=== PATIENT | male | born 1950 | race Caucasian/White ===

== ENCOUNTER → 2020-07-26 13:04 | Outpatient (CLI) | payer MEDICAID, SELFPAY ==
[2020-07-26 12:36] VITALS: BMI 28.0
[2020-07-26 13:35] LABS: Anion Gap 7 (5-15); BUN 55 mg/dL (7-18); BUN/Creat Ratio 19.1 RATIO (10-20); Calcium,Total 8.8 mg/dL (8.5-10.1); Chloride 108 mmol/L (98-107); Creatinine, Serum 2.88 mg/dL (0.70-1.30); EST Glomerular Filtration Rate 23 mL/min (>60); Est Glom Filt Rate - Afr Amer 28 mL/min (>60); Glucose 97 mg/dL (74-106); Potassium 4.9 mmol/L (3.5-5.1); Sodium Level 139 mmol/L (136-145)
[2020-07-26 21:20] LABS: Xtra Tube EP Lab EXTRA TUBE
== END ==
PROVIDERS: PCP Internal Medicine; Referring Provider Surgery; Visit Provider Surgery
DX: N28.9 Disorder of kidney and ureter, unspecified (principal)
CPT/HCPCS: 36415; 80048

== ENCOUNTER → 2020-08-12 12:32 | Outpatient (CLI) | payer MEDICAID, SELFPAY ==
[2020-07-26 12:36] VITALS: BMI 28.0
--- NOTE | 2020-08-12 12:35 | CDU_ITS ---
Reason For Study: STENOSIS Rt. Velocities/BP Lt. Velocities/BP Prox CCA 99/12 cm/sec. Prox CCA 107/14 cm/sec. Mid CCA 71/11 cm/sec. Mid CCA 83/11 cm/sec. Dist CCA 112/19 cm/sec. Dist CCA 65/11 cm/sec. Prox ICA 85/21 cm/sec. Prox ICA 434/157 cm/sec. Mid ICA 99/24 cm/sec. Mid ICA 212/58 cm/sec. Dist ICA 68/21 cm/sec. Dist ICA 57/18 cm/sec. Rt. ICA/CCA = 1.0. Lt. ICA/CCA = 5.2. Prox ECA 99/0 cm/sec. Prox ECA 113/10 cm/sec. Rt. Vert. 42/12 cm/sec. Lt. Vert. 35/0 cm/sec. Right Extracranial There is intimal thickening but no significant atherosclerotic plaque noted in the right common carotid artery. There is heterogeneous, irregular atherosclerotic plaque noted in the right internal carotid artery. There is heterogeneous, irregular atherosclerotic plaque noted in the right external carotid artery. Antegrade flow is noted in the right vertebral artery. There is heterogeneous, irregular atherosclerotic plaque noted in the right bulb. Left Extracranial There is heterogeneous, irregular atherosclerotic plaque noted in the left common carotid artery. There is heterogeneous, irregular atherosclerotic plaque noted in the left internal carotid artery. There is heterogeneous, irregular atherosclerotic plaque noted in the left external carotid artery. Antegrade flow is noted in the left vertebral artery. There is heterogeneous, irregular atherosclerotic plaque noted in the left bulb. Procedure Carotid Duplex 44049. Technically difficult- done with pt sitting upright in his wheelchair. Exam performed in department. VL/Carotid Duplex Ultrasound Interpretation Summary Irregular calcific plaque in the proximal right internal carotid artery with le ss than 50% stenosis Less than 50% stenosis right external carotid artery Extensive irregular calcific plaque at the proximal left internal carotid arter y with greater than 70% stenosis. Elevated peak systolic velocity and end diastolic velocity and IC A to CCA ratios all elevated significantly abnormal consistent with critical stenosis Less than 50% stenosis left external carotid artery Patent and antegrade vertebral arteries bilaterally Ordering Physician: Yasir Luu Referring Physician: PETAR GUALLPA Performed By: Alicia Cruz, ZEUS, RVT
== END ==
PROVIDERS: PCP Internal Medicine; Referring Provider Surgery; Visit Provider Surgery
DX: I65.22 Occlusion and stenosis of left carotid artery (principal)
CPT/HCPCS: 93880

== ENCOUNTER → 2020-10-03 06:52 | Outpatient (CLI) | payer MEDICAID, SELFPAY ==
[2020-09-14 07:13] VITALS: BMI 28.7
--- NOTE | 2020-10-03 15:47 | STRESSREP ---
Stress Test Report Pharmacologic myocardial perfusion stress test. 70-year-old man with a history of coronary artery disease. Medications apixaban atorvastatin furosemide metoprolol. Stress protocol: Resting EKG demonstrates normal sinus rhythm with a rate of 55 bpm normal intervals are noted resting blood pressure is 138/84 mmHg. 0.4 mg of regadenoson was infused per usual protocol followed by rapid intravenous saline flush injection continuous EKG monitoring was performed. At rest there were no ST or T wave changes noted to suggest abnormal flow reserve and at peak infusion nonspecific ST changes were noted with did not meet the criteria for ischemia. No clinical angina was noted the final blood pressure was 142/72 mmHg. Myocardial perfusion protocol. 11.0 mCi of technetium 99m sestamibi was injected at rest. 0.4 mg of regadenoson was infused per usual protocol. At peak infusion 35.4 mCi of technetium 99m sestamibi was injected stress images were obtained stress and rest images were reconstructed and compared in the short axis vertical long and horizontal long axis. Gated images were also obtained per Perfusion SPECT analysis: Review of the stress images demonstrated normal uptake of tracer noted in all areas of the myocardium. The resting images similarly demonstrated normal uptake of tracer noted in all areas of the myocardium. No areas of reversibility are noted to suggest ischemia and no previous infarct is noted. Gated SPECT analysis: The gated ejection fraction is 67%. Conclusion: Normal pharmacologic myocardial perfusion stress test. Preserved ejection fraction.
== END ==
PROVIDERS: PCP Internal Medicine; Visit Provider Internal Medicine Cardiovascular Disease
DX: Z95.5 Presence of coronary angioplasty implant and graft (principal)
CPT/HCPCS: 78452; 93017; A9500; A4216; J2785

== ENCOUNTER → 2024-05-27 | Outpatient (CLI) | payer MEDICAID, SELFPAY ==
--- NOTE | 2024-05-27 07:48 | VDUE_ITS ---
Reason For Study Reason For Study: PRE-Op Planning Right Lower Arm Left Arm Proximal Radial artery diameter 0.29 x 0.31 mm. Left Brachial artery diameter 0.50 x 0.51 mm. Proximal Radial artery waveform is triphasic . Left Brachial artery waveform is triphasic . Right Arm Cephalic Vein at distal forearm measures 0.22 x 0.20 Right Brachial artery diameter 0.57 x 0.54 mm. cm. Right Brachial artery waveform is triphasic . Cephalic Vein at mid forearm measures 0.17 x 0.18 cm. Cephalic Vein at distal forearm measures 0.22 x 0.22 Cephalic Vein proximal forearm measures 0.16 x 0.17 cm. cm. Cephalic Vein at mid forearm measures 0.24 x 0.25 cm. Cephalic Vein distal upper arm measures 0.21 x .024 Cephalic Vein proximal forearm measures 0.22 x 0.18 cm. cm. Cephalic Vein at mid upper arm measures 0.08 x 0.12 Cephalic Vein distal upper arm measures 0.34 x 0.33 cm. cm. Cephalic Vein at proximal upper arm measures 0.11 x Cephalic Vein at mid upper arm measures 0.27 x 0.27 0.15 cm. cm. Proximal Basilic vein measures 0.38 x 0.38 cm. Cephalic Vein at proximal upper arm measures 0.35 x Mid Basilic vein measures 0.41 x 0.41 cm. 0.27 cm. Distal Basilic vein measures 0.39 x 0.40 cm. Proximal Basilic vein measures 0.56 x 0.52 cm. Left Lower Arm Mid Basilic vein measures 0.29 x 0.33 cm. Proximal Radial artery diameter 0.23 x 0.20 mm. Distal Basilic vein measures 0.34 x 0.33 cm. Proximal Radial artery waveform is triphasic . VL/Dialysis Vein Map PRE-OP BILAT Interpretation Summary Bilateral upper extremity arteries patent with normal waveforms and measurement s above. Bilateral upper extremity arteries patent with measurements above. Ordering Physician: Suly Mathew Referring Physician: Irma Doran Performed By: Jose Savage RVT ???
== END | disposition home or self-care (01) ==
LOC: CVS 07:43
PROVIDERS: PCP Internal Medicine; Referring Provider Physician Assistant; Visit Provider Physician Assistant
DX: N18.6 End stage renal disease (principal)
CPT/HCPCS: 93985

== ENCOUNTER 2025-01-05 10:10 | Day surgery (SDC) | payer MEDICAID, SELFPAY ==
--- NOTE | 2024-09-16 14:12 | PAT.ANESEVAL ---
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 When Was Last Pacemaker Check QUESTION #4 FULL TEXT: You/Your Family Experience fever (hyperthermia) with Anesthesia Last Oral Intake Last Oral intake: Last Oral Intake NPO since Meds taken in AM with sips of water? 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 Female No 09/16/24 12:52 HX of Motion Sickness No 09/16/24 12:52 HX of N/V After Surgery No 09/16/24 12:52 Non-Smoker Yes 09/16/24 12:52 Duration of Surgery greater Yes 09/16/24 12:52 than 60 minutes Number of Risk Factors 2 09/16/24 12:52 PONV Score Moderate Risk 09/16/24 12:52 Height & Weight Height & Weight: Anesthesia: Height & Weight Height 5 ft 11 in 09/14/20 07:13 Respiratory Assessment Respiratory Assessment - veterinary science teacher: Respiratory Tract Infection Hx - veterinary science teacher Hx Respiratory Tract Infection Yes 09/16/24 12:52 STOP Sleep Apnea STOP Sleep Apnea - veterinary science teacher: STOP Sleep Apnea - veterinary science teacher Hx Hypertension Yes 09/16/24 12:52 Hx Sleep Apnea Yes 09/16/24 12:52 CPAP No 09/16/24 12:52 BIPAP No 09/16/24 12:52 Do you snore loudly (louder than talking or can be heard Do you often feel tired/ fatigued/ sleepy during daytime? Has anyone observed you stop breathing during sleep? STOP Results Positive 09/16/24 12:52 QUESTION #5 FULL TEXT : Do you snore loudly (louder than talking or can be heard through closed doors)? 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 Specify any problems Hx of Preganancy in last 3 N/A 09/16/24 12:52 Months Nurse Filling Out Transfusion VCHRISTIN 09/16/24 12:52 & Questions: Date: 09/16/24 09/16/24 12:52 Time: 12:54 09/16/24 12:52 Patient unable to answer at this time (ie. 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: /Reproductive Hx- veterinary science teacher Hx Now Gestational Age (in weeks): EDC: Hx Hx Para Hx Section SAB PFSH Medical History (Updated 09/16/24 @ 13:37 by Danyell Dewey) History of echocardiogram History of stress test Parkinson's disease Depression Anxiety Uses wheelchair Prostate disease History of renal disease Anemia High cholesterol DVT (deep venous thrombosis) Loss of consciousness History of diverticulitis Gastric reflux Non-smoker Sleep apnea Shortness of breath on exertion History of edema Hypertension Cardiology follow-up encounter History of CHF (congestive heart failure) Chronic heart failure with preserved ejection fraction (HFpEF) Sigmoid diverticulosis OAB (overactive bladder) Lung nodules Dementia COVID-19 virus detected (12/2019) Renal cell carcinoma Obstructive sleep apnea DDD (degenerative disc disease) Chronic kidney disease, stage 4 (severe) Recurrent deep vein thrombosis (DVT) Atherosclerotic heart disease of [place] coronary artery without angina pectoris Essential hypertension Hyperlipidemia Compromised kidney function OCD (obsessive compulsive disorder) Dysphagia Bipolar 1 disorder Schizophrenia Anemia Parkinsons Home Medications ?Medication ?Instructions ?Recorded ?Last Taken ?Type aspirin 81 mg tablet,delayed 81 mg PO DAILY 07/26/20 Unknown History release cimetidine 200 mg tablet 200 mg PO BID 07/26/20 Unknown History docusate sodium 100 mg capsule 100 mg PO DAILY PRN STOOL SOFTENER 07/26/20 Unknown History (Colace) isosorbide mononitrate 60 mg 60 mg PO DAILY 07/26/20 Unknown History tablet,extended release 24 hr lamotrigine 25 mg tablet (Lamictal) 75 mg PO BID 07/26/20 Unknown History loratadine 10 mg capsule 10 mg PO DAILY 07/26/20 Unknown History metoprolol succinate 25 mg 50 mg PO DAILY 07/26/20 Unknown History tablet,extended release 24 hr cholecalciferol (vitamin D3) 25 25 mcg PO QDAY 04/30/24 Unknown History mcg (1,000 unit) capsule cholecalciferol (vitamin D3) 50 50 mcg PO QDAY 04/30/24 Unknown History mcg (2,000 unit) capsule pantoprazole 40 mg tablet,delayed 40 mg PO QDAY 04/30/24 Unknown History release aripiprazole 15 mg tablet (Abilify) 20 mg PO DAILY 08/13/24 Unknown History cimetidine 200 mg tablet (Acid 200 mg PO TID 09/16/24 Unknown History 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)) hyoscyamine sulfate 0.125 mg 0.125 mg PO Q4H PRN secretions 09/16/24 Unknown History tablet (Levsin) lorazepam 0.5 mg tablet 0.5 mg PO Q2H PRN anxiety 09/16/24 Unknown History Allergy/AdvReac Type Severity Reaction Status Date / Time NSAIDS (Non-Steroidal Allergy Mild PT UNSURE Verified 08/13/24 12:55 Anti-Inflamma OF REACTION Family History Other Diabetes Surgical History (Updated 09/16/24 @ 12:37 by Danyell Dewey) History of cardiac catheterization History of colonoscopy (11/19/19) History of left nephrectomy History of coronary artery stent placement (05/02/18) Social History Smoking Status: Never smoker alcohol intake: never Audit: Pertinent Findings Pertinent Findings EKG Perinent findings: 12 Lead EKG performed by [facility] [place] 09/14/20 0911 MR#: [id number] Acct: [id number] Name: MEGAN RAMOS Rep #: [id number] : 1950 70 From: Freddie Davidson MD Attending Dr: Dr. Freddie Davidson MD Status: DEP [facility] Ordering Dr: Freddie Davidson MD Date: 09/14/20 Location: [facility] [place] Sex: Tabitha Shell Admitted: BMS/12 Lead EKG performed by BMS ECG Report Interpretation Sinus Bradycardia -First degree A-V block Ramona = 242-Poor R-wave progression -nonspecific -consider old anterior infarct. BORDERLINEElectronically signed on 10/04/2020 at 10:02 by Freddie Davidson [employer] Version DragonWave Stress test pertinent findings: [facility] [address] [place] [address] MR#: [id number] Acct: [id number] Name: MEGAN RAMOS Rep #: [id number] : 1950 From: Freddie Davidson MD Primary Care: Dr. Irma Doran MD Status: REG CLI Referring Dr: Sex: Tabitha Shell Stress Test Report Pharmacologic myocardial perfusion stress test. 70-year-old man with a history of coronary artery disease. Medications apixaban atorvastatin furosemide metoprolol. Stress protocol: Resting EKG demonstrates normal sinus rhythm with a rate of 55 bpm normal intervals are noted resting blood pressure is 138/84 mmHg. 0.4 mg of regadenoson was infused per usual protocol followed by rapid intravenous saline flush injection continuous EKG monitoring was performed. At rest there were no ST or T wave changes noted to suggest abnormal flow reserve and at peak infusion nonspecific ST changes were noted with did not meet the criteria for ischemia. No clinical angina was noted the final blood pressure was 142/72 mmHg. Myocardial perfusion protocol. 11.0 mCi of technetium 99m sestamibi was injected at rest. 0.4 mg of regadenoson was infused per usual protocol. At peak infusion 35.4 mCi of technetium 99m sestamibi was injected stress images were obtained stress and rest images were reconstructed and compared in the short axis vertical long and horizontal long axis. Gated images were also obtained per Perfusion SPECT analysis: Review of the stress images demonstrated normal uptake of tracer noted in all areas of the myocardium. The resting images similarly demonstrated normal uptake of tracer noted in all areas of the myocardium. No areas of reversibility are noted to suggest ischemia and no previous infarct is noted. Gated SPECT analysis: The gated ejection fraction is 67%. Conclusion: Normal pharmacologic myocardial perfusion stress test. Preserved ejection fraction. 10/03/20 1551 <Electronically signed by Freddie Davidson MD> Consult pertinent findings: [facility] [address] [place] [address] OFFICE VISIT Date of Service: 09/14/20 MR#: [id number] Acct: [id number] Name: MEGAN RAMOS Rep #: [id number] : 1950 Provider: Dr. Freddie Davidson MD Age/Sex: 70/M Location: [facility] [place] Status: Signed HPI HPI History of Present Illness Details: Gopi [age]-old man with a history of renal cell carcinoma status post left nephrectomy, hypertension, obstructive sleep apnea, coronary artery disease who presented in April 2018 with chest discomfort. He underwent a cardiac catheterization which demonstrated a patent left main coronary artery, left anterior descending artery with proximal high-grade stenosis which was stented, abdominal right coronary artery with mild luminal irregularities. The circumflex artery had minor luminal irregularities as well. He also has a history of mild dementia and Parkinson's disease. He does have renal insufficiency and mild anemia. He had a carotid ultrasound which demonstrated left internal carotid with more than 70% stenosis, right internal carotid with less than 50% stenosis. He is here for perioperative evaluation for possible carotid endarterectomy. He denies any neck arm or jaw discomfort suggest angina no dizziness or diaphoresis no near syncope or syncope. His last presentation with chest pain was in July 2019 when he presented and underwent a pharmacologic myocardial perfusion stress test with no evidence of ischemia. His medical therapy was optimized. He has not had any further disc comfort since then. His physical exam here today is unremarkable. Intake Vital Signs 09/14/20 07:13 Height 5 ft 11 in Weight: 206 lb BMI 28.7 BP 128/77 H Respiration 18 Pulse 58 L Pulse Oximetry (%) 96 Intake Visit Reasons: Cardiac clearance for carotid (RCebul) Allergies NSAIDS (Non-Steroidal Anti-Inflamma Allergy (Mild, Verified 08/24/20 15:58) PT UNSURE OF REACTION Medications apixaban 2.5 mg tablet 2.5 mg PO BID 07/26/20 [History Confirmed 09/14/20] aripiprazole 15 mg tablet 15 mg PO DAILY 07/26/20 [History Confirmed 09/14/20] aspirin 81 mg tablet,delayed release 81 mg PO DAILY 07/26/20 [History Confirmed 09/14/20] atorvastatin 80 mg tablet 80 mg PO DAILY 07/26/20 [History Confirmed 09/14/20] cimetidine 200 mg tablet 200 mg PO QACHS 07/26/20 [History Confirmed 09/14/20] docusate sodium 100 mg capsule 100 mg PO DAILY 07/26/20 [History Confirmed 09/14/20] ergocalciferol (vitamin D2) 1,250 mcg (50,000 unit) capsule 1,250 mcg PO QWEEK 07/26/20 [History Confirmed 09/14/20] ferrous sulfate 325 mg (65 mg iron) tablet 325 mg PO DAILY 07/26/20 [History Confirmed 09/14/20] fluticasone propionate 50 mcg/actuation nasal spray,suspension 1 spray INTRANASAL DAILY 07/26/20 [History Confirmed 09/14/20] furosemide 20 mg tablet 20 mg PO DAILY 07/26/20 [History Confirmed 09/14/20] isosorbide mononitrate 60 mg tablet,extended release 24 hr 60 mg PO DAILY 07/26/20 [History Confirmed 09/14/20] lamotrigine 25 mg tablet 25 mg PO ONCE 07/26/20 [History Confirmed 09/14/20] loratadine 10 mg capsule 10 mg PO DAILY 07/26/20 [History Confirmed 09/14/20] metoprolol succinate 25 mg tablet,extended release 24 hr 12.5 mg PO BID tab 07/26/20 [History Confirmed 09/14/20] omeprazole 40 mg capsule,delayed release 40 mg PO DAILY 07/26/20 [History Confirmed 09/14/20] oxybutynin chloride 10 mg tablet,extended release 24 hr 10 mg PO DAILY 07/26/20 [History Confirmed 09/14/20] polyethylene glycol 3350 17 gram/dose oral powder 17 g PO DAILY 07/26/20 [History Confirmed 09/14/20] tamsulosin 0.4 mg capsule 0.4 mg PO DAILY 07/26/20 [History Confirmed 09/14/20] Ejection fraction %: 65 to 70 [facility] Medical History Anemia Atherosclerotic heart disease of [place] coronary artery without angina pectoris Bipolar 1 disorder Chronic heart failure with preserved ejection fraction (HFpEF) Chronic kidney disease, stage 4 (severe) Compromised kidney function COVID-19 virus detected (12/2019) DDD (degenerative disc disease) Dementia Dysphagia Essential hypertension Hyperlipidemia Lung nodules OAB (overactive bladder) Obstructive sleep apnea OCD (obsessive compulsive disorder) Parkinsons Recurrent deep vein thrombosis (DVT) Renal cell carcinoma Schizophrenia Sigmoid diverticulosis Surgical History History of colonoscopy (11/19/19) History of coronary artery stent placement (05/02/18) History of left nephrectomy Family History Other Diabetes Social History Smoking Status: Never smoker alcohol intake: never ROS Const Const: Positive for other (answers questions appropriately, 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); Negative for fatigue, weakness, headache(s), frequent falls, difficulty sleeping or excessive sweating Eyes Eyes: Negative for loss of peripheral vision, transient loss of vision, blurry vision, double vision or tunnel vision ENT ENT: Negative for headache(s), dizziness, Nosebleed/epistaxis or balance problems Cardio Chest Pain: No Palpitations: No Edema: Right (trace RLE edema) Muscle aches with walking: None Resp Respiratory: Negative for SOB with activity, SOB at rest, SOB orthopnea\SOB lying down, Cough or paroxysmal nocturnal dyspnea GI GI: Negative nausea, vomiting, heartburn or black,tarry stools : Negative for hematuria Musc Musc: Negative for muscle aches/ myalgia, muscle weakness, joint pain or balance problems Skin Skin: Negative non-healing lesions, rash or unusual bruising Neuro Neuro: Negative for dizziness, lightheadedness, near syncope, syncope, orthostatic symptoms, frequent falls, headache(s), weakness, blurry vision, double vision or lack of coordination Edwin Hematologic/Lymphatic: Negative for easy bleeding or easy bruising Endo Endo: Negative for fatigue, excessive sweating or increased thirst/drinking Psych Psych: Negative for anxiety or depression Allergy Allergy/Immunology: Negative for hives and Negative for rash Cardiology Exam Const Appearance: cooperative, healthy appearing, no acute distress, well developed and well groomed Nutritional Appearance: average body habitus and well nourished Orientation: alert, awake and oriented x3 Head Head: normal to inspection, normocephalic and atraumatic Ears: hearing grossly normal bilaterally and external ears normal Nose: external nose normal, nares normal, nasal mucous membranes and turbinates normal, septum normal and no nasal discharge Face and Sinus: face symmetric Mouth: oral mucosae normal, tongue normal, oropharynx normal and moist mucous membranes Teeth and gingiva: dentition normal Throat: posterior oropharynx normal, tonsils normal and uvula midline Eyes General: appearance normal, both eyes and all related structures Eyelids: eyelids normal Conjunctivae: conjunctivae normal Pupils: PERRL, normal by confrontation and accommodation normal EOM: EOM intact bilaterally Neck Neck: normal visual inspection, trachea midline and no JVD JVD: +5 Carotids: normal carotid upstroke and bounding pulses Chest Chest inspection: normal inspection of the chest, symmetric chest movement and normal respiratory effort Auscultation: Bilateral: Clear to Auscultation Cardio Palpation: normal PMI Rate: regular rate Rhythm: regular rhythm Heart sounds: S1 normal, S2 normal and normal, physiologic split S2; Negative rub, gallop or murmur GI GI: normal to inspection, soft, no hepatosplenomegaly and bowel sounds present Neuro General: patient alert, patient awake, patient oriented x3, gait normal, moves all extremities and no focal sensory deficit Skin Skin: no rashes or lesions noted Extremities Pulses: Normal: Right Femoral Pulse, Left Femoral Pulse, Right Dorsalis Pedis Pulse, Left Dorsalis Pedis Pulse, Right Posterior Tibial Pulse, Left Posterior Tibial Pulse, Right Radial Pulse and Left Radial Pulse Lower Extremity Edema: None: Bilateral Musculoskel Musculoskeletal: No joint tenderness Psych Psychological: normal affect Assessment and Plan Assessment and Plan (1) Encounter for pre-operative cardiovascular clearance: Status: Recommendation Anesthesia Recommendation Anesthesia recommendation: OPTIMIZED for anesthesia
--- NOTE | 2024-11-03 16:15 | PAT.ANESEVAL ---
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 When Was Last Pacemaker Check QUESTION #4 FULL TEXT: You/Your Family Experience fever (hyperthermia) with Anesthesia Last Oral Intake Last Oral intake: Last Oral Intake NPO since Meds taken in AM with sips of water? Meds patient instructed to take am of surgery PONV PONV - supervisor component assembler: PONV - supervisor component assembler Female No 11/03/24 14:02 HX of Motion Sickness No 11/03/24 14:02 HX of N/V After Surgery No 11/03/24 14:02 Non-Smoker Yes 11/03/24 14:02 Duration of Surgery greater Yes 11/03/24 14:02 than 60 minutes Number of Risk Factors 2 11/03/24 14:02 PONV Score Moderate Risk 11/03/24 14:02 Height & Weight Height & Weight: Anesthesia: Height & Weight Height 5 ft 11 in 09/14/20 07:13 Respiratory Assessment Respiratory Assessment - supervisor component assembler: Respiratory Tract Infection Hx - supervisor component assembler Hx Respiratory Tract Infection Yes 11/03/24 14:02 STOP Sleep Apnea STOP Sleep Apnea - supervisor component assembler: STOP Sleep Apnea - supervisor component assembler Hx Hypertension Yes 11/03/24 14:02 Hx Sleep Apnea Yes 11/03/24 14:02 CPAP No 11/03/24 14:02 BIPAP No 11/03/24 14:02 Do you snore loudly (louder than talking or can be heard Do you often feel tired/ fatigued/ sleepy during daytime? Has anyone observed you stop breathing during sleep? STOP Results Positive 11/03/24 14:02 QUESTION #5 FULL TEXT : Do you snore loudly (louder than talking or can be heard through closed doors)? 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 Specify any problems Hx of Preganancy in last 3 N/A 11/03/24 14:02 Months Nurse Filling Out Transfusion DSCHRIBER 11/03/24 14:02 & Questions: Date: 11/03/24 11/03/24 14:02 Time: 14:02 11/03/24 14:02 Patient unable to answer at this time (ie. confused, unrespo /Reproduction History /Reproductive History - supervisor component assembler: /Reproductive Hx- supervisor component assembler Hx Now Gestational Age (in weeks): EDC: Hx Hx Para Hx Section SAB PFSH Medical History (Updated 11/03/24 @ 14:02 by Dominga Monson) OCD (obsessive compulsive disorder) Lives in senior living Bipolar disorder Pneumonia History of echocardiogram History of stress test Parkinson's disease Depression Anxiety Uses wheelchair Prostate disease History of renal disease Anemia High cholesterol DVT (deep venous thrombosis) Loss of consciousness History of diverticulitis Gastric reflux Non-smoker Sleep apnea Shortness of breath on exertion History of edema Hypertension Cardiology follow-up encounter History of CHF (congestive heart failure) Chronic heart failure with preserved ejection fraction (HFpEF) Sigmoid diverticulosis OAB (overactive bladder) Lung nodules Dementia Renal cell carcinoma DDD (degenerative disc disease) Recurrent deep vein thrombosis (DVT) Atherosclerotic heart disease of [place] coronary artery without angina pectoris Essential hypertension Hyperlipidemia Compromised kidney function OCD (obsessive compulsive disorder) Dysphagia Bipolar 1 disorder Schizophrenia Anemia Parkinsons Home Medications ?Medication ?Instructions ?Recorded ?Last Taken ?Type aspirin 81 mg tablet,delayed 81 mg PO DAILY 07/26/20 Unknown History release cimetidine 200 mg tablet 200 mg PO BID 07/26/20 Unknown History isosorbide mononitrate 60 mg 60 mg PO DAILY 07/26/20 Unknown History tablet,extended release 24 hr loratadine 10 mg capsule 10 mg PO DAILY 07/26/20 Unknown History cholecalciferol (vitamin D3) 25 25 mcg PO QDAY 04/30/24 Unknown History mcg (1,000 unit) capsule cholecalciferol (vitamin D3) 50 50 mcg PO QDAY 04/30/24 Unknown History mcg (2,000 unit) capsule pantoprazole 40 mg tablet,delayed 40 mg PO QDAY 04/30/24 Unknown History release apixaban 2.5 mg tablet (Eliquis) 2.5 mg PO BID 10/08/24 Unknown History acetaminophen 325 mg tablet 650 mg PO Q4H PRN fever or pain 10/16/24 Unknown History bisacodyl 10 mg rectal suppository 10 mg TN DAILY PRN constipation 10/16/24 Unknown History epoetin michael 10,000 unit/mL 10,000 unit subcut .[id number] 10/16/24 Unknown History injection solution (Epogen) lamotrigine 150 mg tablet 75 mg PO BID 10/16/24 Unknown History lisinopril 10 mg tablet 10 mg PO DAILY 10/16/24 Unknown History metoprolol succinate 50 mg capsule 50 mg PO DAILY 10/16/24 Unknown History sprinkle, ext. release 24 hr (Kapspargo Sprinkle) nystatin 100,000 unit/gram topical 1 applic topical DAILY 10/16/24 Unknown History powder (Klayesta) ondansetron HCl 4 mg tablet 4 mg PO Q4H PRN nausea and vomiting 10/16/24 Unknown History vitamin B complex-vitamin C-folic 1 tab PO DAILY 10/16/24 Unknown History acid 0.8 mg tablet aripiprazole 20 mg tablet 20 mg PO DAILY 11/03/24 Unknown History aripiprazole 5 mg tablet (Abilify) 5 mg PO DAILY 11/03/24 Unknown History chlorpheniramine-dextromethorphan 1 tab PO Q6H PRN cough 11/03/24 Unknown History 4 mg-30 mg tablet (Coricidin HBP Cough and Cold) clonidine HCl 0.1 mg tablet 0.1 mg PO BID 11/03/24 Unknown History polyethylene glycol 3350 17 gram 17 g PO DAILY 11/03/24 Unknown History oral powder packet (Miralax) polysaccharide iron complex 150 mg 150 mg PO DAILY 11/03/24 Unknown History iron capsule (Ferrex) senna-docusate sodium tablet 1 tab PO DAILY 11/03/24 Unknown History Allergy/AdvReac Type Severity Reaction Status Date / Time NSAIDS (Non-Steroidal Allergy Mild PT UNSURE Verified 11/03/24 13:37 Anti-Inflamma OF REACTION Family History Other Diabetes Surgical History (Updated 09/16/24 @ 12:37 by Danyell Dewey) History of cardiac catheterization History of colonoscopy (11/19/19) History of left nephrectomy History of coronary artery stent placement (05/02/18) Social History Smoking Status: Never smoker alcohol intake: never Audit: Pertinent Findings HISTORY of Pertinent Findings History of Pertinent Findings: EKG Pertinent Findings EKG Perinent findings 12 Lead EKG performed by [facility] [place] 09/16/24 14:15 09/14/20 0911 MR#: [id number] Acct: [id number] Name: MEGAN RAMOS Rep #: [id number] : 1950 70 From: Freddie Davidson MD Attending Dr: Dr. Freddie Davidson MD Status: DEP AMB Ordering Dr: Freddie Davidson MD Date: 09/14/20 Location: [facility] [place] Sex: M C Admitted: BMS/12 Lead EKG performed by [facility] [place] ECG Report Interpretation Sinus Bradycardia -First degree A-V block Ramona = 242-Poor R-wave progression -nonspecific -consider old anterior infarct. BORDERLINEElectronically signed on 10/04/2020 at 10:02 by Freddie Davidson [employer] Version 8610 Stress Test Pertinent Findings Stress test pertinent findings 09/16/24 14:14 [facility] [address] [place] [address] MR#: [id number] Acct: [id number] Name: MEGAN RAMOS Rep #: [id number] : 1950 70 From: Freddie Davidson MD Primary Care: Dr. Irma Doran MD Status: REG CLI Referring Dr: Sex: M C Stress Test Report Pharmacologic myocardial perfusion stress test. 70-year-old man with a history of coronary artery disease. Medications apixaban atorvastatin furosemide metoprolol. Stress protocol: Resting EKG demonstrates normal sinus rhythm with a rate of 55 bpm normal intervals are noted resting blood pressure is 138/84 mmHg. 0.4 mg of regadenoson was infused per usual protocol followed by rapid intravenous saline flush injection continuous EKG monitoring was performed. At rest there were no ST or T wave changes noted to suggest abnormal flow reserve and at peak infusion nonspecific ST changes were noted with did not meet the criteria for ischemia. No clinical angina was noted the final blood pressure was 142/72 mmHg. Myocardial perfusion protocol. 11.0 mCi of technetium 99m sestamibi was injected at rest. 0.4 mg of regadenoson was infused per usual protocol. At peak infusion 35.4 mCi of technetium 99m sestamibi was injected stress images were obtained stress and rest images were reconstructed and compared in the short axis vertical long and horizontal long axis. Gated images were also obtained per Perfusion SPECT analysis: Review of the stress images demonstrated normal uptake of tracer noted in all areas of the myocardium. The resting images similarly demonstrated normal uptake of tracer noted in all areas of the myocardium. No areas of reversibility are noted to suggest ischemia and no previous infarct is noted. Gated SPECT analysis: The gated ejection fraction is 67%. Conclusion: Normal pharmacologic myocardial perfusion stress test. Preserved ejection fraction. 10/03/20 1551 <Electronically signed by Freddie Davidson MD> Consult Pertinent Findings Consult pertinent findings [facility] 09/16/24 14:13 [facility] [address] [place] [address] OFFICE VISIT Date of Service: 09/14/20 MR#: [id number] Acct: [id number] Name: MEGAN RAMOS Rep #: [id number] : 1950 Provider: Dr. Freddie Davidson MD Age/Sex: 70/M Location: [facility] [place] Status: Signed HPI HPI History of Present Illness Details: Edward[age]z [age]-old man with a history of renal cell carcinoma status post left nephrectomy, hypertension, obstructive sleep apnea, coronary artery disease who presented in April 2018 with chest discomfort. He underwent a cardiac catheterization which demonstrated a patent left main coronary artery, left anterior descending artery with proximal high- grade stenosis which was stented, abdominal right coronary artery with mild luminal irregularities. The circumflex artery had minor luminal irregularities as well. He also has a history of mild dementia and Parkinson's disease. He does have renal insufficiency and mild anemia. He had a carotid ultrasound which demonstrated left internal carotid with more than 70% stenosis, right internal carotid with less than 50% stenosis. He is here for perioperative evaluation for possible carotid endarterectomy. He denies any neck arm or jaw discomfort suggest angina no dizziness or diaphoresis no near syncope or syncope. His last presentation with chest pain was in July 2019 when he presented and underwent a pharmacologic myocardial perfusion stress test with no evidence of ischemia. His medical therapy was optimized. He has not had any further disc comfort since then. His physical exam here today is unremarkable. Intake Vital Signs 09/14/20 07:13 Height 5 ft 11 in Weight: 206 lb BMI 28.7 BP 128/77 H Respiration 18 Pulse 58 L Pulse Oximetry (%) 96 Intake Visit Reasons: Cardiac clearance for carotid ( RCebul) Allergies NSAIDS (Non-Steroidal Anti- Inflamma Allergy (Mild, Verified 08/24/20 15:58) PT UNSURE OF REACTION Medications apixaban 2.5 mg tablet 2.5 mg PO BID 07/26/20 [History Confirmed 09/14/20] aripiprazole 15 mg tablet 15 mg PO DAILY 07/26/20 [ History Confirmed 09/14/20] aspirin 81 mg tablet,delayed release 81 mg PO DAILY 10/08 [History Confirmed ] atorvastatin 80 mg tablet 80 mg PO DAILY 07/26/20 [ History Confirmed 09/14/20] cimetidine 200 mg tablet 200 mg PO QACHS 07/26/20 [ History Confirmed 09/14/20] docusate sodium 100 mg capsule 100 mg PO DAILY 10/08 [History Confirmed ] ergocalciferol (vitamin D2) 1,250 mcg (50,000 unit) capsule 1,250 mcg PO QWEEK 07/26/20 [History Confirmed 09/14/20] ferrous sulfate 325 mg (65 mg iron) tablet 325 mg PO DAILY 07/26/20 [History Confirmed 09/14/20] fluticasone propionate 50 mcg/actuation nasal spray, suspension 1 spray INTRANASAL DAILY 07/26/20 [ History Confirmed 09/14/20] furosemide 20 mg tablet 20 mg PO DAILY 07/26/20 [ History Confirmed 09/14/20] isosorbide mononitrate 60 mg tablet,extended release 24 hr 60 mg PO DAILY 07/26/20 [ History Confirmed 09/14/20] lamotrigine 25 mg tablet 25 mg PO ONCE 07/26/20 [History Confirmed 09/14/20] loratadine 10 mg capsule 10 mg PO DAILY 07/26/20 [ History Confirmed 09/14/20] metoprolol succinate 25 mg tablet,extended release 24 hr 12.5 mg PO BID tab 07/26 [History Confirmed 09/14] omeprazole 40 mg capsule, delayed release 40 mg PO DAILY 07/26/20 [History Confirmed 09/14/20] oxybutynin chloride 10 mg tablet,extended release 24 hr 10 mg PO DAILY 07/26/20 [ History Confirmed 09/14/20] polyethylene glycol 3350 17 gram/dose oral powder 17 g PO DAILY 07/26/20 [History Confirmed 09/14/20] tamsulosin 0.4 mg capsule 0. 4 mg PO DAILY 07/26/20 [ History Confirmed 09/14/20] Ejection fraction %: 65 to 70 PFSH Medical History (Reviewed @ 10:[address] Freddie Davidson MD) Anemia Atherosclerotic heart disease of [place] coronary artery without angina pectoris Bipolar 1 disorder Chronic heart failure with preserved ejection fraction (HFpEF) Chronic kidney disease, stage 4 (severe) Compromised kidney function COVID-19 virus detected (2019) DDD (degenerative disc disease) Dementia Dysphagia Essential hypertension Hyperlipidemia Lung nodules OAB (overactive bladder) Obstructive sleep apnea OCD (obsessive compulsive disorder) Parkinsons Recurrent deep vein thrombosis (DVT) Renal cell carcinoma Schizophrenia Sigmoid diverticulosis Surgical History History of colonoscopy (03/09) History of coronary artery stent placement (05/02/18) History of left nephrectomy Family History (Reviewed @ 10:[address] Freddie Davidson MD) Other Diabetes Social History (Reviewed @ 10:[address] 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); Negative for fatigue, weakness, headache(s), frequent falls, difficulty sleeping or excessive sweating Eyes Eyes: Negative for loss of peripheral vision, transient loss of vision, blurry vision, double vision or tunnel vision ENT ENT: Negative for headache(s ), dizziness, Nosebleed/ epistaxis or balance problems Cardio Chest Pain: No Palpitations: No Edema: Right (trace RLE edema) Muscle aches with walking: None Resp Respiratory: Negative for SOB with activity, SOB at rest, SOB orthopnea\SOB lying down, Cough or paroxysmal nocturnal dyspnea GI GI: Negative nausea, vomiting, heartburn or black ,tarry stools : Negative for hematuria Musc Musc: Negative for muscle aches/ myalgia, muscle weakness, joint pain or balance problems Skin Skin: Negative non-healing lesions, rash or unusual bruising Neuro Neuro: Negative for dizziness, lightheadedness, near syncope, syncope, orthostatic symptoms, frequent falls, headache(s), weakness, blurry vision, double vision or lack of coordination Edwin Hematologic/Lymphatic: Negative for easy bleeding or easy bruising Endo Endo: Negative for fatigue, excessive sweating or increased thirst/drinking Psych Psych: Negative for anxiety or depression Allergy Allergy/Immunology: Negative for hives and Negative for rash Cardiology Exam Const Appearance: cooperative, healthy appearing, no acute distress, well developed and well groomed Nutritional Appearance: average body habitus and well nourished Orientation: alert, awake and oriented x3 Head Head: normal to inspection, normocephalic and atraumatic Ears: hearing grossly normal bilaterally and external ears normal Nose: external nose normal, nares normal, nasal mucous membranes and turbinates normal, septum normal and no nasal discharge Face and Sinus: face symmetric Mouth: oral mucosae normal, tongue normal, oropharynx normal and moist mucous membranes Teeth and gingiva: dentition normal Throat: posterior oropharynx normal, tonsils normal and uvula midline Eyes General: appearance normal, both eyes and all related structures Eyelids: eyelids normal Conjunctivae: conjunctivae normal Pupils: PERRL, normal by confrontation and accommodation normal EOM: EOM intact bilaterally Neck Neck: normal visual inspection, trachea midline and no JVD JVD: +5 Carotids: normal carotid upstroke and bounding pulses Chest Chest inspection: normal inspection of the chest, symmetric chest movement and normal respiratory effort Auscultation: Bilateral: Clear to Auscultation Cardio Palpation: normal PMI Rate: regular rate Rhythm: regular rhythm Heart sounds: S1 normal, S2 normal and normal, physiologic split S2; Negative rub, gallop or murmur GI GI: normal to inspection, soft, no hepatosplenomegaly and bowel sounds present Neuro General: patient alert, patient awake, patient oriented x3, gait normal, moves all extremities and no focal sensory deficit Skin Skin: no rashes or lesions noted Extremities Pulses: Normal: Right Femoral Pulse, Left Femoral Pulse, Right Dorsalis Pedis Pulse, Left Dorsalis Pedis Pulse, Right Posterior Tibial Pulse, Left Posterior Tibial Pulse, Right Radial Pulse and Left Radial Pulse Lower Extremity Edema: None: Bilateral Musculoskel Musculoskeletal: No joint tenderness Psych Psychological: normal affect Assessment and Plan Assessment and Plan (1) Encounter for pre- operative cardiovascular clearance: Status: Pertinent Findings EKG Perinent findings: 09/17/2024. Sinus bradycardia at 53 bpm. Prolonged P wave. First-degree AV block. Abnormal Q waves in III, aVF and V1. Poor R wave progression in V2, V3 and V4. Inferior myocardial infarction. Suspect old anterior myocardial infarction. Left axis deviation. Recommendation Anesthesia Recommendation Anesthesia recommendation: OPTIMIZED for anesthesia
--- NOTE | 2025-01-04 16:32 | PAT.ANESEVAL ---
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 When Was Last Pacemaker Check QUESTION #4 FULL TEXT: You/Your Family Experience fever (hyperthermia) with Anesthesia Last Oral Intake Last Oral intake: Last Oral Intake NPO since Meds taken in AM with sips of water? Meds patient instructed to take am of surgery PONV PONV - barrel endshaker adjuster: PONV - barrel endshaker adjuster Female No 11/03/24 14:02 HX of Motion Sickness No 11/03/24 14:02 HX of N/V After Surgery No 11/03/24 14:02 Non-Smoker Yes 11/03/24 14:02 Duration of Surgery greater Yes 11/03/24 14:02 than 60 minutes Number of Risk Factors 2 11/03/24 14:02 PONV Score Moderate Risk 11/03/24 14:02 Height & Weight Height & Weight: Anesthesia: Height & Weight Height 5 ft 11 in 01/04/25 08:51 Weight: 88.904 kg 01/04/25 08:51 Respiratory Assessment Respiratory Assessment - barrel endshaker adjuster: Respiratory Tract Infection Hx - barrel endshaker adjuster Hx Respiratory Tract Infection Yes 11/03/24 14:02 STOP Sleep Apnea STOP Sleep Apnea - barrel endshaker adjuster: STOP Sleep Apnea - barrel endshaker adjuster Hx Hypertension Yes 11/03/24 14:02 Hx Sleep Apnea Yes 11/03/24 14:02 CPAP No 11/03/24 14:02 BIPAP No 11/03/24 14:02 Do you snore loudly (louder than talking or can be heard Do you often feel tired/ fatigued/ sleepy during daytime? Has anyone observed you stop breathing during sleep? STOP Results Positive 11/03/24 14:02 QUESTION #5 FULL TEXT : Do you snore loudly (louder than talking or can be heard through closed doors)? 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 Specify any problems Hx of Preganancy in last 3 N/A 11/03/24 14:02 Months Nurse Filling Out Transfusion DSCHRIBER 11/03/24 14:02 & Questions: Date: 11/03/24 11/03/24 14:02 Time: 14:02 11/03/24 14:02 Patient unable to answer at this time (ie. confused, unrespo /Reproduction History /Reproductive History - barrel endshaker adjuster: /Reproductive Hx- barrel endshaker adjuster Hx Now Gestational Age (in weeks): EDC: Hx Hx Para Hx Section SAB Does the father of the baby or his family experience fever w Father of the baby Malignant Hypertension history comment Active Medications Active Medications: Current Medications Generic Name Dose Route Start Last Admin Trade Name Freq PRN Reason Stop Dose Admin Cefazolin Sodium 2 gm/ Sodium 110 mls @ 200 mls/hr 01/05/25 14:30 Chloride IV 01/05/25 15:02 INTRAOP ONE PFS Medical History (Updated 11/03/24 @ 14:02 by Dominga Monson) OCD (obsessive compulsive disorder) Lives in care home Bipolar disorder Pneumonia History of echocardiogram History of stress test Parkinson's disease Depression Anxiety Uses wheelchair Prostate disease History of renal disease Anemia High cholesterol DVT (deep venous thrombosis) Loss of consciousness History of diverticulitis Gastric reflux Non-smoker Sleep apnea Shortness of breath on exertion History of edema Hypertension Cardiology follow-up encounter History of CHF (congestive heart failure) Chronic heart failure with preserved ejection fraction (HFpEF) Sigmoid diverticulosis OAB (overactive bladder) Lung nodules Dementia Renal cell carcinoma DDD (degenerative disc disease) Recurrent deep vein thrombosis (DVT) 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 Essential hypertension Hyperlipidemia Compromised kidney function OCD (obsessive compulsive disorder) Dysphagia Bipolar 1 disorder Schizophrenia Anemia Parkinsons Home Medications ?Medication ?Instructions ?Recorded ?Last Taken ?Type aspirin 81 mg tablet,delayed 81 mg PO DAILY 07/26/20 Unknown History release cimetidine 200 mg tablet 200 mg PO BID 07/26/20 Unknown History isosorbide mononitrate 60 mg 60 mg PO DAILY 07/26/20 Unknown History tablet,extended release 24 hr loratadine 10 mg capsule 10 mg PO DAILY 07/26/20 Unknown History cholecalciferol (vitamin D3) 25 25 mcg PO QDAY 04/30/24 Unknown History mcg (1,000 unit) capsule cholecalciferol (vitamin D3) 50 50 mcg PO QDAY 04/30/24 Unknown History mcg (2,000 unit) capsule pantoprazole 40 mg tablet,delayed 40 mg PO QDAY 04/30/24 Unknown History release apixaban 2.5 mg tablet (Eliquis) 2.5 mg PO BID 10/08/24 Unknown History acetaminophen 325 mg tablet 650 mg PO Q4H PRN fever or pain 10/16/24 Unknown History bisacodyl 10 mg rectal suppository 10 mg ME DAILY PRN constipation 10/16/24 Unknown History epoetin michael 10,000 unit/mL 10,000 unit subcut .[id number] 10/16/24 Unknown History injection solution (Epogen) lamotrigine 150 mg tablet 75 mg PO BID 10/16/24 Unknown History lisinopril 10 mg tablet 10 mg PO DAILY 10/16/24 Unknown History metoprolol succinate 50 mg capsule 50 mg PO DAILY 10/16/24 Unknown History sprinkle, ext. release 24 hr (Kapspargo Sprinkle) nystatin 100,000 unit/gram topical 1 applic topical DAILY 10/16/24 Unknown History powder (Klayesta) ondansetron HCl 4 mg tablet 4 mg PO Q4H PRN nausea and vomiting 10/16/24 Unknown History vitamin B complex-vitamin C-folic 1 tab PO DAILY 10/16/24 Unknown History acid 0.8 mg tablet aripiprazole 20 mg tablet 20 mg PO DAILY 11/03/24 Unknown History aripiprazole 5 mg tablet (Abilify) 5 mg PO DAILY 11/03/24 Unknown History chlorpheniramine-dextromethorphan 1 tab PO Q6H PRN cough 11/03/24 Unknown History 4 mg-30 mg tablet (Coricidin HBP Cough and Cold) clonidine HCl 0.1 mg tablet 0.1 mg PO BID 11/03/24 Unknown History polyethylene glycol 3350 17 gram 17 g PO DAILY 11/03/24 Unknown History oral powder packet (Miralax) polysaccharide iron complex 150 mg 150 mg PO DAILY 11/03/24 Unknown History iron capsule (Ferrex) senna-docusate sodium tablet 1 tab PO DAILY 11/03/24 Unknown History Allergy/AdvReac Type Severity Reaction Status Date / Time NSAIDS (Non-Steroidal Allergy Mild PT UNSURE Verified 11/03/24 13:37 Anti-Inflamma OF REACTION Family History Other Diabetes Surgical History (Updated 09/16/24 @ 12:37 by Danyell Dewey) History of cardiac catheterization History of colonoscopy (11/19/19) History of left nephrectomy History of coronary artery stent placement (05/02/18) Social History Smoking Status: Never smoker alcohol intake: never Audit: Pertinent Findings HISTORY of Pertinent Findings History of Pertinent Findings: EKG Pertinent Findings EKG Perinent findings 09/17/2024. Sinus 11/03/24 16:26 bradycardia at 53 bpm. Prolonged P wave. First- degree AV block. Abnormal Q waves in III, aVF and V1. Poor R wave progression in V2, V3 and V4. Inferior myocardial infarction. Suspect old anterior myocardial infarction. Left axis deviation. EKG Perinent findings 12 Lead EKG performed by [facility] 09/16/24 14:15 09/14/20 0911 MR#: [id number] Acct: [id number] Name: MEGAN RAMOS Rep #: [id number] : 1950 70 From: Freddie Davidson MD Attending Dr: Dr. Freddie Davidson MD Status: DEP AMB Ordering Dr: Freddie Davidson MD Date: 09/14/20 Location: [facility] [place], [place] Sex: M C Admitted: BMS/12 Lead EKG performed by [facility] ECG Report Interpretation Sinus Bradycardia -First degree A-V block Ramona = 242-Poor R-wave progression -nonspecific -consider old anterior infarct. BORDERLINEElectronically signed on 10/04/2020 at 10:02 by Freddie Davidson [employer] Version 8610 Stress Test Pertinent Findings Stress test pertinent findings 09/16/24 14:14 [facility] [address] [place] [address] MR#: [id number] Acct: [id number] Name: MEGAN RAMOS Rep #: [id number] : 1950 70 From: Freddie Davidson MD Primary Care: Dr. Irma Doran MD Status: REG CLI Referring Dr: Mando: Tabitha Shell Stress Test Report Pharmacologic myocardial perfusion stress test. 70-year-old man with a history of coronary artery disease. Medications apixaban atorvastatin furosemide metoprolol. Stress protocol: Resting EKG demonstrates normal sinus rhythm with a rate of 55 bpm normal intervals are noted resting blood pressure is 138/84 mmHg. 0.4 mg of regadenoson was infused per usual protocol followed by rapid intravenous saline flush injection continuous EKG monitoring was performed. At rest there were no ST or T wave changes noted to suggest abnormal flow reserve and at peak infusion nonspecific ST changes were noted with did not meet the criteria for ischemia. No clinical angina was noted the final blood pressure was 142/72 mmHg. Myocardial perfusion protocol. 11.0 mCi of technetium 99m sestamibi was injected at rest. 0.4 mg of regadenoson was infused per usual protocol. At peak infusion 35.4 mCi of technetium 99m sestamibi was injected stress images were obtained stress and rest images were reconstructed and compared in the short axis vertical long and horizontal long axis. Gated images were also obtained per Perfusion SPECT analysis: Review of the stress images demonstrated normal uptake of tracer noted in all areas of the myocardium. The resting images similarly demonstrated normal uptake of tracer noted in all areas of the myocardium. No areas of reversibility are noted to suggest ischemia and no previous infarct is noted. Gated SPECT analysis: The gated ejection fraction is 67%. Conclusion: Normal pharmacologic myocardial perfusion stress test. Preserved ejection fraction. 10/03/20 3761 <Electronically signed by Freddie Davidson MD> Consult Pertinent Findings Consult pertinent findings [facility] 09/16/24 14:13 [facility] [address] [place] [address] OFFICE VISIT Date of Service: 09/14/20 MR#: [id number] Acct: [id number] Name: MEGAN RAMOS Rep #: [id number] : 1950 Provider: Dr. Freddie Davidson MD Age/Sex: 70/M Location: [facility] Status: Signed HPI HPI History of Present Illness Details: Gopi [age]-old man with a history of renal cell carcinoma status post left nephrectomy, hypertension, obstructive sleep apnea, coronary artery disease who presented in April 2018 with chest discomfort. He underwent a cardiac catheterization which demonstrated a patent left main coronary artery, left anterior descending artery with proximal high- grade stenosis which was stented, abdominal right coronary artery with mild luminal irregularities. The circumflex artery had minor luminal irregularities as well. He also has a history of mild dementia and Parkinson's disease. He does have renal insufficiency and mild anemia. He had a carotid ultrasound which demonstrated left internal carotid with more than 70% stenosis, right internal carotid with less than 50% stenosis. He is here for perioperative evaluation for possible carotid endarterectomy. He denies any neck arm or jaw discomfort suggest angina no dizziness or diaphoresis no near syncope or syncope. His last presentation with chest pain was in July 2019 when he presented and underwent a pharmacologic myocardial perfusion stress test with no evidence of ischemia. His medical therapy was optimized. He has not had any further disc comfort since then. His physical exam here today is unremarkable. Intake Vital Signs 09/14/20 07:13 Height 5 ft 11 in Weight: 206 lb BMI 28.7 BP 128/77 H Respiration 18 Pulse 58 L Pulse Oximetry (%) 96 Intake Visit Reasons: Cardiac clearance for carotid ( RCebul) Allergies NSAIDS (Non-Steroidal Anti- Inflamma Allergy (Mild, Verified 08/24/20 15:58) PT UNSURE OF REACTION Medications apixaban 2.5 mg tablet 2.5 mg PO BID 07/26/20 [History Confirmed 09/14/20] aripiprazole 15 mg tablet 15 mg PO DAILY 07/26/20 [ History Confirmed 09/14/20] aspirin 81 mg tablet,delayed release 81 mg PO DAILY 10/08 [History Confirmed ] atorvastatin 80 mg tablet 80 mg PO DAILY 07/26/20 [ History Confirmed 09/14/20] cimetidine 200 mg tablet 200 mg PO QACHS 07/26/20 [ History Confirmed 09/14/20] docusate sodium 100 mg capsule 100 mg PO DAILY 10/08 [History Confirmed ] ergocalciferol (vitamin D2) 1,250 mcg (50,000 unit) capsule 1,250 mcg PO QWEEK 07/26/20 [History Confirmed 09/14/20] ferrous sulfate 325 mg (65 mg iron) tablet 325 mg PO DAILY 07/26/20 [History Confirmed 09/14/20] fluticasone propionate 50 mcg/actuation nasal spray, suspension 1 spray INTRANASAL DAILY 07/26/20 [ History Confirmed 09/14/20] furosemide 20 mg tablet 20 mg PO DAILY 07/26/20 [ History Confirmed 09/14/20] isosorbide mononitrate 60 mg tablet,extended release 24 hr 60 mg PO DAILY 07/26/20 [ History Confirmed 09/14/20] lamotrigine 25 mg tablet 25 mg PO ONCE 07/26/20 [History Confirmed 09/14/20] loratadine 10 mg capsule 10 mg PO DAILY 07/26/20 [ History Confirmed 09/14/20] metoprolol succinate 25 mg tablet,extended release 24 hr 12.5 mg PO BID tab 07/26 [History Confirmed 09/14] omeprazole 40 mg capsule, delayed release 40 mg PO DAILY 07/26/20 [History Confirmed 09/14/20] oxybutynin chloride 10 mg tablet,extended release 24 hr 10 mg PO DAILY 07/26/20 [ History Confirmed 09/14/20] polyethylene glycol 3350 17 gram/dose oral powder 17 g PO DAILY 07/26/20 [History Confirmed 09/14/20] tamsulosin 0.4 mg capsule 0. 4 mg PO DAILY 07/26/20 [ History Confirmed 09/14/20] Ejection fraction %: 65 to 70 PFSH Medical History (Reviewed @ 10:[address] 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 Bipolar 1 disorder Chronic heart failure with preserved ejection fraction (HFpEF) Chronic kidney disease, stage 4 (severe) Compromised kidney function COVID-19 virus detected (2019) DDD (degenerative disc disease) Dementia Dysphagia Essential hypertension Hyperlipidemia Lung nodules OAB (overactive bladder) Obstructive sleep apnea OCD (obsessive compulsive disorder) Parkinsons Recurrent deep vein thrombosis (DVT) Renal cell carcinoma Schizophrenia Sigmoid diverticulosis Surgical History History of colonoscopy (03/09) History of coronary artery stent placement (05/02/18) History of left nephrectomy Family History (Reviewed @ 10:[address] Freddie Davidson MD) Other Diabetes Social History (Reviewed @ 10:[address] 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 nursing assistant); Negative for fatigue, weakness, headache(s), frequent falls, difficulty sleeping or excessive sweating Eyes Eyes: Negative for loss of peripheral vision, transient loss of vision, blurry vision, double vision or tunnel vision ENT ENT: Negative for headache(s ), dizziness, Nosebleed/ epistaxis or balance problems Cardio Chest Pain: No Palpitations: No Edema: Right (trace RLE edema) Muscle aches with walking: None Resp Respiratory: Negative for SOB with activity, SOB at rest, SOB orthopnea\SOB lying down, Cough or paroxysmal nocturnal dyspnea GI GI: Negative nausea, vomiting, heartburn or black ,tarry stools : Negative for hematuria Musc Musc: Negative for muscle aches/ myalgia, muscle weakness, joint pain or balance problems Skin Skin: Negative non-healing lesions, rash or unusual bruising Neuro Neuro: Negative for dizziness, lightheadedness, near syncope, syncope, orthostatic symptoms, frequent falls, headache(s), weakness, blurry vision, double vision or lack of coordination Edwin Hematologic/Lymphatic: Negative for easy bleeding or easy bruising Endo Endo: Negative for fatigue, excessive sweating or increased thirst/drinking Psych Psych: Negative for anxiety or depression Allergy Allergy/Immunology: Negative for hives and Negative for rash Cardiology Exam Const Appearance: cooperative, healthy appearing, no acute distress, well developed and well groomed Nutritional Appearance: average body habitus and well nourished Orientation: alert, awake and oriented x3 Head Head: normal to inspection, normocephalic and atraumatic Ears: hearing grossly normal bilaterally and external ears normal Nose: external nose normal, nares normal, nasal mucous membranes and turbinates normal, septum normal and no nasal discharge Face and Sinus: face symmetric Mouth: oral mucosae normal, tongue normal, oropharynx normal and moist mucous membranes Teeth and gingiva: dentition normal Throat: posterior oropharynx normal, tonsils normal and uvula midline Eyes General: appearance normal, both eyes and all related structures Eyelids: eyelids normal Conjunctivae: conjunctivae normal Pupils: PERRL, normal by confrontation and accommodation normal EOM: EOM intact bilaterally Neck Neck: normal visual inspection, trachea midline and no JVD JVD: +5 Carotids: normal carotid upstroke and bounding pulses Chest Chest inspection: normal inspection of the chest, symmetric chest movement and normal respiratory effort Auscultation: Bilateral: Clear to Auscultation Cardio Palpation: normal PMI Rate: regular rate Rhythm: regular rhythm Heart sounds: S1 normal, S2 normal and normal, physiologic split S2; Negative rub, gallop or murmur GI GI: normal to inspection, soft, no hepatosplenomegaly and bowel sounds present Neuro General: patient alert, patient awake, patient oriented x3, gait normal, moves all extremities and no focal sensory deficit Skin Skin: no rashes or lesions noted Extremities Pulses: Normal: Right Femoral Pulse, Left Femoral Pulse, Right Dorsalis Pedis Pulse, Left Dorsalis Pedis Pulse, Right Posterior Tibial Pulse, Left Posterior Tibial Pulse, Right Radial Pulse and Left Radial Pulse Lower Extremity Edema: None: Bilateral Musculoskel Musculoskeletal: No joint tenderness Psych Psychological: normal affect Assessment and Plan Assessment and Plan (1) Encounter for pre- operative cardiovascular clearance: Status: Pertinent Findings Consult pertinent findings: 07/07/2024. Dr. Newton. 1. LVH-no M protein to suggest AL amyloidosis. No other signs and symptoms of amyloidosis. Obtain repeat PYP. 2. Heart failure with preserved ejection fraction-remains euvolemic on exam. No diuretics. 3. Coronary artery disease-PCI of LAD in 2019. No exertional chest pain or dyspnea now. 4. Hypertension?controlled. Additional pertinent findings: 12/31/2024. Potassium is 5.3. Creatinine of 3.26. Hemoglobin is 9.9. Recommendation Anesthesia Recommendation Anesthesia recommendation: OPTIMIZED for anesthesia (Patient has abnormal creatinine, potassium and hemoglobin. This is not unexpected in a patient with chronic kidney disease.)
[2025-01-05] VITALS (10 sets, daily range): BP systolic 101–113; BP diastolic 53–69; PULSE 52–55; RESP 16–20; TEMP 36.4–37.1; O2SAT 90–99; BMI 27.4
--- NOTE | 2025-01-05 11:22 | PCM.PRE.AN2 ---
ASA Classification* ASA Classification ASA Classification: 3 Assessment & Plan Anesthesia* Anesthesia Assessment Anesthesia Assessment: Discussed sedation and/or anesthesia options, risks, benefits, and alternatives with patient/parents/legal guardian/POA. Questions invited. The patient/parents/legal guardian/POA seems to understand and agrees to proceed with anesthesia plan. Reviewed the physical assessment, medical history, allergy history and patient home medications list prior to surgery/procedure/anesthetic and documented any changes. Performed airway and anesthesia risk assessments. Anesthesia Type Anesthesia Type: General, MAC and Block History Source History Obtained from:: Patient, Chart and Parent/ Guardian (I spoke over the phone with the sister which on the paperwork from residential is stated that she is a POA. As well I spoke with the patient in detail about the anesthesia and the DNR CCA status. The patient wishes to be full code during the procedure and go back to his previous status after the.) Anesthesia Focused Assessment* Temperature: 97.6 F Pulse Rate: 53 Blood Pressure: 111/69 Respiratory Rate: 16 Pulse Ox: 97 Oxygen Delivery Method: Room Air Airway Assessment Mouth opens: >3 cm Mallampati Score: II Teeth Condition: Dentures (Edentulous) Neck Range of motion (ROM): Limited ROM Labs Anesthesia Preop lab: CBC CHEMISTRY Potassium, (3.5-5.1) 4.9 mmol/L 07/26/20, 13:11 Sodium, (136-145) 139 mmol/L 07/26/20, 13:11 BUN, (7-18) 55 mg/dL H 07/26/20, 13:11 Creatinine, (0.70-1.30) 2.88 mg/dL H 07/26/20, 13:11 Glucose, (74-106) 97 mg/dL 07/26/20, 13:11 COAG Pre-Assessment Diagnosis/Proposed Procedure Planned Operative Procedure(s): (R) Right Arm Arteriovenous Fistula Creation Anesthesia History Anesthesia History - dough puncher: Anesthesia History - dough puncher Hx Hospitalization Yes: 08/202411/03/24 14:02 Any Problems With Anesthesia No 11/03/24 14:02 Cholinesterase deficiency No 11/03/24 14:02 You/Your Family Experience No 11/03/24 14:02 fever (hyperthermia) with Relationship Recent Exposure to Contagious No 01/05/25 10:48 Disease Does patient have nerve No 11/03/24 14:02 stimulator Patient instructed to have device shut off --Does patient have Pacemaker No 01/05/25 10:48 or ICD? When Was Last Pacemaker Check QUESTION #4 FULL TEXT: You/Your Family Experience fever (hyperthermia) with Anesthesia Last Oral Intake Last Oral intake: Last Oral Intake NPO since 00:00 01/05/25 10:48 Meds taken in AM with sips of Yes 01/05/25 10:48 water? Meds patient instructed to @0500 01/05/25 10:48 take am of surgery apriprazole cholecalciferol clonidine isosorbide er loratadine metoprolol folic acis lamotrigine tagament PONV PONV - dough puncher: PONV - dough puncher Female No 11/03/24 14:02 HX of Motion Sickness No 11/03/24 14:02 HX of N/V After Surgery No 11/03/24 14:02 Non-Smoker Yes 11/03/24 14:02 Duration of Surgery greater Yes 11/03/24 14:02 than 60 minutes Number of Risk Factors 2 11/03/24 14:02 PONV Score Moderate Risk 11/03/24 14:02 Height & Weight Height & Weight: Anesthesia: Height & Weight Height 5 ft 10.87 in 01/05/25 10:48 Weight: 89 kg 01/05/25 10:48 Body Mass Index (BMI) 27.4 01/05/25 10:48 Respiratory Assessment Respiratory Assessment - dough puncher: Respiratory Tract Infection Hx - dough puncher Hx Respiratory Tract Infection Yes 11/03/24 14:02 STOP Sleep Apnea STOP Sleep Apnea - dough puncher: STOP Sleep Apnea - dough puncher Hx Hypertension Yes 11/03/24 14:02 Hx Sleep Apnea Yes 11/03/24 14:02 CPAP No 11/03/24 14:02 BIPAP No 11/03/24 14:02 Do you snore loudly (louder than talking or can be heard Do you often feel tired/ fatigued/ sleepy during daytime? Has anyone observed you stop breathing during sleep? STOP Results Positive 11/03/24 14:02 QUESTION #5 FULL TEXT : Do you snore loudly (louder than talking or can be heard through closed doors)? 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 Specify any problems Hx of Preganancy in last 3 N/A 11/03/24 14:02 Months Nurse Filling Out Transfusion DSCHRIBER 11/03/24 14:02 & Questions: Date: 11/03/24 11/03/24 14:02 Time: 14:02 11/03/24 14:02 Patient unable to answer at this time (ie. confused, unrespo /Reproduction History /Reproductive History - dough puncher: /Reproductive Hx- dough puncher Hx Now Gestational Age (in weeks): EDC: Hx Hx Para Hx Section SAB Does the father of the baby or his family experience fever w Father of the baby Malignant Hypertension history comment Active Medications Active Medications: Current Medications Generic Name Dose Route Start Last Admin Trade Name Freq PRN Reason Stop Dose Admin Cefazolin Sodium 2 gm/ Sodium 110 mls @ 200 mls/hr 01/05/25 14:30 Chloride IV 01/05/25 15:02 INTRAOP [facility] Medical History OCD (obsessive compulsive disorder) Lives in residential Bipolar disorder Pneumonia History of echocardiogram History of stress test Parkinson's disease Depression Anxiety Uses wheelchair Prostate disease History of renal disease Anemia High cholesterol DVT (deep venous thrombosis) Loss of consciousness History of diverticulitis Gastric reflux Non-smoker Sleep apnea Shortness of breath on exertion History of edema Hypertension Cardiology follow-up encounter History of CHF (congestive heart failure) Chronic heart failure with preserved ejection fraction (HFpEF) Sigmoid diverticulosis OAB (overactive bladder) Lung nodules Dementia Renal cell carcinoma DDD (degenerative disc disease) Recurrent deep vein thrombosis (DVT) Atherosclerotic heart disease of [place] coronary artery without angina pectoris Essential hypertension Hyperlipidemia Compromised kidney function OCD (obsessive compulsive disorder) Dysphagia Bipolar 1 disorder Schizophrenia Anemia Parkinsons Home Medications ?Medication ?Instructions ?Recorded ?Last Taken ?Type aspirin 81 mg tablet,delayed 81 mg PO DAILY 07/26/20 Unknown History release cimetidine 200 mg tablet 200 mg PO BID 07/26/20 Unknown History isosorbide mononitrate 60 mg 60 mg PO DAILY 07/26/20 01/05/25 05:00 History tablet,extended release 24 hr loratadine 10 mg capsule 10 mg PO DAILY 07/26/20 01/05/25 05:00 History cholecalciferol (vitamin D3) 25 25 mcg PO QDAY 04/30/24 01/05/25 05:00 History mcg (1,000 unit) capsule cholecalciferol (vitamin D3) 50 50 mcg PO QDAY 04/30/24 01/05/25 05:00 History mcg (2,000 unit) capsule pantoprazole 40 mg tablet,delayed 40 mg PO QDAY 04/30/24 01/04/25 History release apixaban 2.5 mg tablet (Eliquis) 2.5 mg PO BID 10/08/24 12/22/24 History acetaminophen 325 mg tablet 650 mg PO Q4H PRN fever or pain 10/16/24 Unknown History bisacodyl 10 mg rectal suppository 10 mg [place] DAILY PRN constipation 10/16/24 Unknown History epoetin michael 10,000 unit/mL 10,000 unit subcut .[id number] 10/16/24 12/28/24 History injection solution (Epogen) lamotrigine 150 mg tablet 75 mg PO BID 10/16/24 01/05/25 05:00 History lisinopril 10 mg tablet 10 mg PO DAILY 10/16/24 Unknown History metoprolol succinate 50 mg capsule 50 mg PO DAILY 10/16/24 01/05/25 05:00 History sprinkle, ext. release 24 hr (Kapspargo Sprinkle) nystatin 100,000 unit/gram topical 1 applic topical DAILY 10/16/24 Unknown History powder (Klayesta) ondansetron HCl 4 mg tablet 4 mg PO Q4H PRN nausea and vomiting 10/16/24 Unknown History vitamin B complex-vitamin C-folic 1 tab PO DAILY 10/16/24 01/05/25 05:00 History acid 0.8 mg tablet aripiprazole 20 mg tablet 20 mg PO DAILY 11/03/24 01/05/25 05:00 History aripiprazole 5 mg tablet (Abilify) 5 mg PO DAILY 11/03/24 01/05/25 05:00 History chlorpheniramine-dextromethorphan 1 tab PO Q6H PRN cough 11/03/24 Unknown History 4 mg-30 mg tablet (Coricidin HBP Cough and Cold) clonidine HCl 0.1 mg tablet 0.1 mg PO BID 11/03/24 01/05/25 05:00 History polyethylene glycol 3350 17 gram 17 g PO DAILY 11/03/24 Unknown History oral powder packet (Miralax) polysaccharide iron complex 150 mg 150 mg PO DAILY 11/03/24 Unknown History iron capsule (Ferrex) senna-docusate sodium tablet 1 tab PO DAILY 11/03/24 Unknown History Allergy/AdvReac Type Severity Reaction Status Date / Time NSAIDS (Non-Steroidal Allergy Mild PT UNSURE Verified 11/03/24 13:37 Anti-Inflamma OF REACTION Family History Other Diabetes Surgical History History of cardiac catheterization History of colonoscopy (11/19/19) History of left nephrectomy History of coronary artery stent placement (05/02/18) Social History Smoking Status: Never smoker alcohol intake: never Review of Systems (Anesthesia) ROS Narrative System reviewed and no additional complaints, except as documented.
--- NOTE | 2025-01-05 11:42 | SUR.PREOP ---
dr ho and mayte rn talked with sister/poa-Lauren about surgery and consent for surgery and anesthesia
--- NOTE | 2025-01-05 12:00 | PCM.HP.STD ---
HPI - General HPI Narrative MEGAN RAMOS, is a 74 M who presents with CKD, not yet on dialysis. He currently resides in [facility] and has had several hospital admission and rescheduled surgeries due to various medical events since last being seen in office in July. [facility], [facility] Medical History OCD (obsessive compulsive disorder) Lives in custodial Bipolar disorder Pneumonia History of echocardiogram History of stress test Parkinson's disease Depression Anxiety Uses wheelchair Prostate disease History of renal disease Anemia High cholesterol DVT (deep venous thrombosis) Loss of consciousness History of diverticulitis Gastric reflux Non-smoker Sleep apnea Shortness of breath on exertion History of edema Hypertension Cardiology follow-up encounter History of CHF (congestive heart failure) Chronic heart failure with preserved ejection fraction (HFpEF) Sigmoid diverticulosis OAB (overactive bladder) Lung nodules Dementia Renal cell carcinoma DDD (degenerative disc disease) Recurrent deep vein thrombosis (DVT) Atherosclerotic heart disease of [place] coronary artery without angina pectoris Essential hypertension Hyperlipidemia Compromised kidney function OCD (obsessive compulsive disorder) Dysphagia Bipolar 1 disorder Schizophrenia Anemia Parkinsons Home Medications ?Medication ?Instructions ?Recorded ?Last Taken ?Type aspirin 81 mg tablet,delayed 81 mg PO DAILY 07/26/20 Unknown History release cimetidine 200 mg tablet 200 mg PO BID 07/26/20 Unknown History isosorbide mononitrate 60 mg 60 mg PO DAILY 07/26/20 01/05/25 05:00 History tablet,extended release 24 hr loratadine 10 mg capsule 10 mg PO DAILY 07/26/20 01/05/25 05:00 History cholecalciferol (vitamin D3) 25 25 mcg PO QDAY 04/30/24 01/05/25 05:00 History mcg (1,000 unit) capsule cholecalciferol (vitamin D3) 50 50 mcg PO QDAY 04/30/24 01/05/25 05:00 History mcg (2,000 unit) capsule pantoprazole 40 mg tablet,delayed 40 mg PO QDAY 04/30/24 01/04/25 History release apixaban 2.5 mg tablet (Eliquis) 2.5 mg PO BID 10/08/24 12/22/24 History acetaminophen 325 mg tablet 650 mg PO Q4H PRN fever or pain 10/16/24 Unknown History bisacodyl 10 mg rectal suppository 10 mg [place] DAILY PRN constipation 10/16/24 Unknown History epoetin michael 10,000 unit/mL 10,000 unit subcut .[id number] 10/16/24 12/28/24 History injection solution (Epogen) lamotrigine 150 mg tablet 75 mg PO BID 10/16/24 01/05/25 05:00 History lisinopril 10 mg tablet 10 mg PO DAILY 10/16/24 Unknown History metoprolol succinate 50 mg capsule 50 mg PO DAILY 10/16/24 01/05/25 05:00 History sprinkle, ext. release 24 hr (Kapspargo Sprinkle) nystatin 100,000 unit/gram topical 1 applic topical DAILY 10/16/24 Unknown History powder (Klayesta) ondansetron HCl 4 mg tablet 4 mg PO Q4H PRN nausea and vomiting 10/16/24 Unknown History vitamin B complex-vitamin C-folic 1 tab PO DAILY 10/16/24 01/05/25 05:00 History acid 0.8 mg tablet aripiprazole 20 mg tablet 20 mg PO DAILY 11/03/24 01/05/25 05:00 History aripiprazole 5 mg tablet (Abilify) 5 mg PO DAILY 11/03/24 01/05/25 05:00 History chlorpheniramine-dextromethorphan 1 tab PO Q6H PRN cough 11/03/24 Unknown History 4 mg-30 mg tablet (Coricidin HBP Cough and Cold) clonidine HCl 0.1 mg tablet 0.1 mg PO BID 11/03/24 01/05/25 05:00 History polyethylene glycol 3350 17 gram 17 g PO DAILY 11/03/24 Unknown History oral powder packet (Miralax) polysaccharide iron complex 150 mg 150 mg PO DAILY 11/03/24 Unknown History iron capsule (Ferrex) senna-docusate sodium tablet 1 tab PO DAILY 11/03/24 Unknown History Allergy/AdvReac Type Severity Reaction Status Date / Time NSAIDS (Non-Steroidal Allergy Mild PT UNSURE Verified 11/03/24 13:37 Anti-Inflamma OF REACTION Family History Other Diabetes Surgical History History of cardiac catheterization History of colonoscopy (11/19/19) History of left nephrectomy History of coronary artery stent placement (05/02/18) Social History Smoking Status: Never smoker alcohol intake: never ROS Constitutional Constitutional: Denies chills, fever(s), frequent falls, lethargy or weakness Eyes Eyes: Denies blind spots, change in vision or loss of vision ENT HEENT: Denies bleeding gums, hoarseness or sore throat Cardiovascular Cardiovascular: Denies abdominal pain, bluish discoloration of hand/feet, chest pain with activity, claudication, cold extremities, cyanosis, dyspnea on exertion, erythema on extremities, irregular heart rhythm, leg edema, leg ulcers, numbness in extremities or weakness in extremities Respiratory/Chest Respiratory/Chest: Denies cough, excessive phlegm production, shortness of breath at rest, shortness of breath with exertion or wheezing Gastrointestinal Gastrointestinal: Denies anorexia, change in stool character, constipation, diarrhea, melena or rectal bleeding Genitourinary Genitourinary: Denies dysuria or hematuria Musculoskeletal Musculoskeletal: Denies abnormal gait Integumentary Integumentary: Reports other Details: ; Denies erythema, non-healing lesions or wounds Neurologic Neurologic: Denies abnormal speech, focal weakness, headache(s), loss of vision, numbness, paresthesias or sensory deficit Hematologic/Lymphatic Hematologic/Lymphatic: Denies easy bleeding, easy bruising or lymphadenopathy Vital Signs Vital Signs Vital Signs: 01/05/25 10:48 01/05/25 10:48 01/05/25 10:48 Temperature 97.6 F L Temperature Source Temporal Pulse Rate 53 L Respiratory Rate 16 Respiratory Pattern Normal Blood Pressure 111/69 Blood Pressure Mean 83 Blood Pressure Source Monitor Blood Pressure Position Semi-Fowlers Blood Pressure Location Left Arm Baseline BP 111/69 Pulse Ox 97 Oxygen Delivery Method Room Air 01/05/25 11:24 Temperature 97.6 F L Temperature Source Pulse Rate 53 L Respiratory Rate 16 Respiratory Pattern Blood Pressure 111/69 Blood Pressure Mean Blood Pressure Source Blood Pressure Position Blood Pressure Location Baseline BP Pulse Ox 97 Oxygen Delivery Method Room Air Weight Weight: 196 lb 3.382 oz Body Mass Index (BMI) 27.4 Physical Exam Const alert, oriented x3, no apparent distress and healthy appearing General Appearance: cooperative; Negative for combative or lethargic Orientation / Consciousness: awake Exam Limitations: no limitations HEENT Head and Scalp: normocephalic and atraumatic Eyes EOMs intact bilaterally General Eye: normal appearance of both eyes Neck full ROM General: trachea midline Resp normal respiratory effort and no use of accessory muscles Effort and Inspection: Negative for labored, stridor or audible wheezes Cardio regular rate and regular rhythm Peripheral Pulses: brachial pulses present and radial pulses present Back/Spine Cervical Spine: cervical ROM normal Extremity full ROM, normal capillary refill and no clubbing, cyanosis or edema Skin no rashes or lesions noted and no wounds Neuro oriented x3, CN's II-XII intact bilaterally, no focal motor deficits and no sensory deficits noted Psych thought process normal, cooperative, affect normal, speech normal and activity/motor behavior normal Assessment & Plan Assessment/Plan (1) Chronic kidney disease, stage 4 (severe): PLAN: -right arm fistula creation
[2025-01-05] MEDS: 0.9% Normal Saline (1000mL) 500 ML IV (12:08)
[2025-01-05] MEDS: Cefazolin 1 GM/5 ML Vial 2 GM IV (12:15)
[2025-01-05] MEDS: fentaNYL 100 MCG/2 ML Ampul 50 MCG IV (12:22)
[2025-01-05] MEDS: Lidocaine 1% (5 ml sdv) 5 ML Vial 3 ML IV (12:22)
[2025-01-05] MEDS: Lidocaine 1% (20 ml mdv) 20 ML Vial (12:35)
[2025-01-05] MEDS: Heparin Injection (Vial) 5,000 UNIT/ML VIAL 8000 UNIT IV (12:44)
--- NOTE | 2025-01-05 13:22 | DCINST_ITS ---
Discharge Instructions Diet Discharge Diet: No restrictions Activity May shower in (days): 2 Lifting Restrictions: do not lift > 20 lbs with right arm for 14 days Additional Activity Instructions:: do not submerge incision for 14 days Dressing / Incision Call your doctor if your incision/area has: Sudden Increased Bleeding, Increased Pain/ Swelling, Increased Redness and Foul Smelling Discharge Call your doctor if you observe: Coldness, Increased Pain and Numbness or Tingling Remove Dressing in: 2 days Cleanse incision/area with: Soap & Water Follow Up Care Test Results: Test results from this visit will be discussed in further detail at your follow- up appointment, if applicable. Discharge Plan Admission Attending Provider: Albert Briones Primary Care Provider: Charlie Willams Instructions Print Language: Estonian Discharge Orders/Prescriptions Prescriptions: Continued aspirin 81 mg tablet,delayed release (DR/EC) 81 mg PO DAILY isosorbide mononitrate 60 mg tablet extended release 24 hr 60 mg PO DAILY loratadine 10 mg capsule 10 mg PO DAILY cimetidine 200 mg tablet 200 mg PO BID pantoprazole 40 mg tablet,delayed release (DR/EC) 40 mg PO QDAY cholecalciferol (vitamin D3) 25 mcg (1,000 unit) capsule 25 mcg PO QDAY cholecalciferol (vitamin D3) 50 mcg (2,000 unit) capsule 50 mcg PO QDAY lamotrigine 150 mg tablet 75 mg PO BID Kapspargo Sprinkle 50 mg capsule,sprinkle,ER 24hr 50 mg PO DAILY acetaminophen 325 mg tablet 650 mg PO Q4H PRN (Reason: fever or pain) bisacodyl 10 mg suppository 10 mg [place] DAILY PRN (Reason: constipation) Epogen 10,000 unit/mL solution 10,000 unit subcut .[id number] Patient Comments: [NO ORIGINAL SIG] lisinopril 10 mg tablet 10 mg PO DAILY nystatin [Klayesta] 100,000 unit/gram powder 1 applic topical DAILY ondansetron HCl 4 mg tablet 4 mg PO Q4H PRN (Reason: nausea and vomiting) B complex-vitamin C-folic acid 0.8 mg tablet 1 tab PO DAILY aripiprazole [Abilify] 5 mg tablet 5 mg PO DAILY aripiprazole 20 mg tablet 20 mg PO DAILY clonidine HCl 0.1 mg tablet 0.1 mg PO BID polysaccharide iron complex [Ferrex 150] 150 mg iron capsule 150 mg PO DAILY polyethylene glycol 3350 [Miralax] 17 gram powder in packet 17 g PO DAILY senna-docusate sodium Tablet 1 tab PO DAILY Coricidin HBP Cough and Cold 4-30 mg tablet 1 tab PO Q6H PRN (Reason: cough) Held Eliquis 2.5 mg tablet 2.5 mg PO BID Hold Instructions: Resume on 01/07/25. AM dose Referrals / Follow Up: Charlie Willams MD [Primary Care Provider, Internal Medicine] Disposition Disposition (needs filled in before D/C Order can be placed): Home, Self Care
--- NOTE | 2025-01-05 13:48 | PCM.POST.ANE ---
Anesthesia: Postop Eval I Current Vital Signs Temperature: 98.7 F Pulse Rate: 55 Blood Pressure: 111/59 Respiratory Rate: 20 Pulse Ox: 95 Oxygen Delivery Method: Venturi Mask Oxygen Flow Rate (L/min): 4 Assessment Airway patent: Yes Spontaneous unlabored respirations: Yes Mental status: Awake and Calm nausea: No Vomiting: No Anesthesia Complication: No Fluid Hydration Crystalloid volume administer (ml): 100 Total IV fluid infused: 100 Progress Note Anesthesia document: Postop Eval 1 completed: Yes
--- NOTE | 2025-01-05 14:57 | OP.PCM_ITS ---
Operative Report (Standard) Operative Information Date of Procedure: 01/05/25 Pre-Operative Diagnosis: Chronic kidney disease Post-Operative Diagnosis: Same Surgery/Procedure Performed: Right arm arteriovenous fistula creation clinical support associate: Yes Fermenter Helper: Marcellus Hyatt Tasks completed by list of first job ideas: Opening, Closing, Opening & closing, Hemostasis: Tie, Hemostasis: Electrocautery and Retracting Type of Anesthesia: Local MAC, Local and MAC RN Documented Start/Stop Times: Operation Date: 01/05/25 12:00 Case Time Into Pre-Op 01/05/25 10:34 Out of Pre-Op 01/05/25 12:07 Anesthesia Start 01/05/25 12:08 Into Room 01/05/25 12:08 Procedure Start 01/05/25 12:35 Procedure End 01/05/25 13:32 Anesthesia End 01/05/25 13:37 Out of Room 01/05/25 13:37 Into Recovery 01/05/25 13:39 Into Phase II Recovery 01/05/25 14:18 Out of Recovery 01/05/25 14:18 Procedure Start Time: 12:35 Procedure Stop Time: 13:30 Select all DRAINS/GRAFTS/IMPLANTS that apply: None Estimated Blood Loss: 7 Specimen collected: No Description of surgery: HPI: Patient is a 74-year-old male with chronic kidney disease not yet on dialysis. He had preoperative vein mapping which revealed adequate right upper arm cephalic and basilic veins for seminole fistula creation. In the interval since being seen in the office has had multiple admissions to the hospital and presumed multiple IV sticks and blood draws. He presents now for fistula creation without flow dependent on which vessel appears to still be adequate. Description of procedure: Upon obtaining informed consent and verification correct patient procedure site the patient was taken to the operating where he was positioned prepped and draped in usual sterile fashion. Timeouts performed moderate sedation ministered by anesthesia. Ultrasound used to evaluate the upper arm cephalic and basilic veins in their relationship to the brachial artery. 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 Given the appearance of the 2 potential outflow veins was felt that anastomosis of the road traffic controller vein with dual outflow would give the best opportunity for successful fistula maturation. There is adequate close proximity of the road traffic controller vein and also the extension of the vein into the proximal forearm for below the antecubital crease anastomosis. Skin overlying the vessels was anesthetized 1% lidocaine and transverse incision made 2 fingerbreadths distal to the antecubital crease. Bovie was used to dissect the subcutaneous tissue and self-retaining retractors put in position. Once the confluence of the cubital branches was visualized sharp dissection was used dissect free proximal and distal including the extension into the forearm and the road traffic controller vein. The forearm extension actually had adequate caliber and had more working length so the the plan was to use this rather than the road traffic controller vein. Further dissection was then carried down to the fascia which was incised and self- retaining retractors move deeper in the wound. Sharp dissection was used dissec t free the brachial artery proximally and then distally onto the radial and ulnar arteries with right angle used to place Vesseloops. The patient was then heparinized and allowed to circulate for [address] controller vein was ligated with silk ties and divided and the extension of the cubital branches and the forearm ligated distally and divided. The common trunk and both of the outflow veins were then dilated up to 3-1/2 mm and flushed with heparinized saline. The distal brachial artery, ulnar artery, radial artery were then occluded with Vesseloops and longitudinal arteriotomy created with 11 blade on the radial artery extended with Barros scissors. The vein was then marked to maintain orientation and anastomosis performed using 6-0 Prolene in a running fashion. Prior to completing suturing the vessels are backbled and flushed into the outflow veins. After completing suture line clamps removed and satisfactory stasis was observed. There is palpable radial pulse in the wrist and palpable thrill in both the cephalic and basilic outflow veins. The incision was then inspected for hemostasis and heparin reversed with protamine. The incision was then closed with 3-0 Vicryl, 4 Monocryl and Dermabond for the skin. The patient was then taken to the recovery room with anticipated discharge back to his long- term care facility. Surgical Findings: Palpable thrill, palpable radial pulse Complications Complications: No
--- NOTE | 2025-01-05 15:04 | SUR.PHASEII ---
THIS NURSE CALLED REPORT BACK TO [facility], SPOKE WITH NURSING STAFF GIVING POST-OP INSTRUCTIONS THAT ARE HIGHLIGHTED ON WRITTEN FORM.
--- NOTE | 2025-01-05 16:30 | POSTOPAN2_ITS ---
Anesthesia Postop Eval I Sum Postop Eval Completion status Anesthesia document: Postop Eval 1 completed: Yes Anesthesia Postop Eval I Summary Anesthesia Postop Eval I Summary: Anesthesia Postop Eval I: Assessment Summary Airway patent Yes 01/05/25 13:49 [email or web address] Spontaneous unlabored Yes 01/05/25 13:49 [email or web address] respirations Mental status Awake,Calm 01/05/25 13:49 [email or web address] nausea No 01/05/25 13:49 [email or web address] Vomiting No 01/05/25 13:49 [email or web address] Anesthesia Postop Eval I: Fluid Summary Crystalloid volume administer 100 01/05/25 13:49 [email or web address] (ml) Colloids volume administered ( ml) Blood Product volume administered (ml) Total IV fluid infused 100 01/05/25 13:49 [email or web address] Anesthesia Postop Eval I: Summary Notes Anesthesia Complication No 01/05/25 13:49 [email or web address] Anesthesia Complication Comment: Post-operative progress note Anesthesia: Postop Eval II Evaluation Mental status: Awake and Calm Pain Level: 1 nausea: No Vomiting: No Complications Anesthesia Complication: No
--- NOTE | 2025-01-05 16:30 | PCM.POSTANE2 ---
Anesthesia Postop Eval I Sum Postop Eval Completion status Anesthesia document: Postop Eval 1 completed: Yes Anesthesia Postop Eval I Summary Anesthesia Postop Eval I Summary: Anesthesia Postop Eval I: Assessment Summary Airway patent Yes 01/05/25 13:49 CONTENT [email or web address] Spontaneous unlabored Yes 01/05/25 13:49 CONTENT [email or web address] respirations Mental status Awake,Calm 01/05/25 13:49 CONTENT [email or web address] nausea No 01/05/25 13:49 [email or web address] [email or web address] Vomiting No 01/05/25 13:49 [email or web address] [email or web address] Anesthesia Postop Eval I: Fluid Summary Crystalloid volume administer 100 01/05/25 13:49 CONTENT [email or web address] (ml) Colloids volume administered ( ml) Blood Product volume administered (ml) Total IV fluid infused 100 01/05/25 13:49 [email or web address] Anesthesia Postop Eval I: Summary Notes Anesthesia Complication No 01/05/25 13:49 [email or web address] [email or web address] Anesthesia Complication Comment: Post-operative progress note Anesthesia: Postop Eval II Evaluation Mental status: Awake and Calm Pain Level: 1 nausea: No Vomiting: No Complications Anesthesia Complication: No
== END 2025-01-05 15:06 | disposition home or self-care (01) ==
LOC: SDC 10:14 → AC 10:15
PROVIDERS: PCP General Practice; Referring Provider Surgery Trauma Surgery; Visit Provider Surgery Trauma Surgery
PROC: (CPT 36821; principal; 2025-01-05 11:45)
DX: I13.0 Hypertensive heart and chronic kidney disease with heart failure and stage 1 through stage 4 chronic kidney disease, or unspecified chronic kidney disease (principal); G20.A1 Parkinson's disease without dyskinesia, without mention of fluctuations; N18.4 Chronic kidney disease, stage 4 (severe); F20.9 Schizophrenia, unspecified; I50.32 Chronic diastolic (congestive) heart failure; F31.9 Bipolar disorder, unspecified; F41.9 Anxiety disorder, unspecified; K21.9 Gastro-esophageal reflux disease without esophagitis; N32.81 Overactive bladder; D64.9 Anemia, unspecified; I25.10 Atherosclerotic heart disease of native coronary artery without angina pectoris; F42.9 Obsessive-compulsive disorder, unspecified; E78.00 Pure hypercholesterolemia, unspecified; G47.30 Sleep apnea, unspecified; Z90.5 Acquired absence of kidney; Z87.19 Personal history of other diseases of the digestive system; Z86.718 Personal history of other venous thrombosis and embolism; Z79.82 Long term (current) use of aspirin; Z79.01 Long term (current) use of anticoagulants; Z79.899 Other long term (current) drug therapy
CPT/HCPCS: 36821; 01844; A4648; J2405